=== PATIENT | female | born 1930 | race Caucasian/White ===

== ENCOUNTER 2019-03-20 12:43 | Inpatient (IN) | payer MEDICARE, BC ==
[~2019-03-20] VITALS: Ht 167.6 cm; Wt 63.6 kg
[2019-03-20 13:26] LABS: BASOPHILS # (AUTO) 0.1 X10'3 (0-0.2); BASOPHILS % (AUTO) 0.2 % (0-1); EOSINOPHILS % (AUTO) 0 % (0-6); HEMATOCRIT 35.1 % (35.0-45.0); HEMOGLOBIN 11.6 g/dl (12.0-16.0); LYMPHOCYTES # (AUTO) 0.3 X10'3 (1.1-4.8); LYMPHOCYTES % (AUTO) 1.4 % (21-51); MEAN CORPUSCULAR HEMOGLOBIN 31.1 PG (27.0-31.0); MEAN CORPUSCULAR VOLUME 94.4 FL (78-98); MEAN PLATELET VOLUME 8.3 FL (7.4-10.4); MONOCYTES # (AUTO) 0.6 X10'3 (0-0.9); MONOCYTES % (AUTO) 2.6 % (2-12); NEUTROPHILS # (AUTO) 22.5 X10'3 (1.8-7.7); NEUTROPHILS % (AUTO) 95.8 % (42-75); PLATELET COUNT 230 X10'3 (140-440); RED BLOOD COUNT 3.72 X10'6 (4.20-5.60); RED CELL DISTRIBUTION WIDTH 13.8 % (11.5-14.5); WHITE BLOOD COUNT 23.5 X10'3 (4.5-11.0)
[2019-03-20 13:44] LABS: ALANINE AMINOTRANSFERASE 28 U/L (12-78); ALBUMIN 3.4 G/DL (3.4-5.0); ALKALINE PHOSPHATASE 108 IU/L (46-116); ANION GAP 12 (8-16); ASPARTATE AMINO TRANSFERASE 33 U/L (10-37); BILIRUBIN,TOTAL 0.8 MG/DL (0.1-1.0); BLOOD UREA NITROGEN 39 MG/DL (7-18); BUN/CREATININE RATIO 19.8 (6.6-38.0); CALCIUM 8.8 MG/DL (8.5-10.1); CHLORIDE 105 MMOL/L (99-107); CREATININE 1.97 MG/DL (0.40-0.90); GLUCOSE 144 MG/DL (70-104); POTASSIUM 4.6 MMOL/L (3.5-5.1); SODIUM 140 MMOL/L (135-145); TOTAL CARBON DIOXIDE 23.2 MMOL/L (24-32); TOTAL PROTEIN 6.9 G/DL (6.4-8.2); eGFR 24 ML/MIN
[2019-03-20 14:23] LABS: CLARITY,URINE SLIGHTLY CLOUDY (Clear); COLOR,URINE YELLOW (Yellow); GLUCOSE, URINE NEGATIVE (Neg); KETONES,URINE NEGATIVE (Neg); LEUKOCYTE ESTERASE ,URINE MODERATE (Neg); NITRITES, URINE NEGATIVE (Neg); OCCULT BLOOD,URINE NEGATIVE (Neg); PROTEIN,URINE NEGATIVE (Neg); UROBILINOGEN,URINE 0.2 E.U/dL (0.2-1.0)
[2019-03-20 14:29] LABS: UA COLLECTION TYPE STRAIGHT CATH
[2019-03-20 14:30] LABS: BACTERIA,URINE 4+ /HPF (Neg); RBC,URINE NONE SEEN /HPF (0-2); SQUAMOUS EPITHELIAL CELL,UR FEW /LPF (FEW); TRANSITIONAL EPI CELLS,URINE FEW /HPF; WBC,URINE 50-100 /HPF (0-4)
[2019-03-20 14:31] LABS: WBC CLUMPS,URINE FEW /HPF (NEGATIVE)
[2019-03-20] MEDS ORDERED: CefTRIAXone 2gm/D5W 50ml 50 ML IV ONE ×2 (14:40→14:45)
[2019-03-20] MEDS ORDERED: CefTRIAXone/D5W-Rocephin 1gm 50 ML IV ONE (14:40)
[2019-03-20] MEDS ORDERED: ondansetron/PF 4mg/2ml inj IV PRN (15:25)
[2019-03-20] MEDS ORDERED: acetaminophen 325mg tablet PO PRN ×2 (15:25)
[2019-03-20] MEDS ORDERED: magnesium 2GM in 50ml NS 50 ML IV PRN (15:25)
[2019-03-20] MEDS ORDERED: potassium Cl 20 mEq SR tablet PO PRN ×2 (15:25)
[2019-03-20] MEDS ORDERED: potassium CL 10mEq/100ml bag 100 ML IV PRN ×2 (15:25)
[2019-03-20] MEDS ORDERED: mag hydrox/Alum hydrox/simeth 30ml oral suspension PO PRN (15:25)
[2019-03-20] MEDS ORDERED: magnesium 4gm in 100ml NS 100 ML IV PRN (15:25)
[2019-03-20] MEDS ORDERED: magnesium Cl slow-release 64mg tablet PO PRN (15:25)
[2019-03-20] MEDS ORDERED: FERR325T32 PO (15:49)
[2019-03-20] MEDS ORDERED: ASPI81TA52 PO (15:49)
[2019-03-20] MEDS ORDERED: LISI-604 PO (15:50)
[2019-03-20] MEDS ORDERED: LEVO50TA8 PO (15:50)
[2019-03-20] MEDS ORDERED: LOSA1TAB39 PO (15:51)
[2019-03-20] MEDS ORDERED: MEMA10TA PO (15:52)
[2019-03-20] MEDS ORDERED: QUET-1 PO (15:52)
[2019-03-20] MEDS ORDERED: DOCU-148 PO (15:53)
[2019-03-20] MEDS ORDERED: QUET25TA PO (15:54)
[2019-03-20] MEDS ORDERED: CHOL100046 PO (15:55)
[2019-03-20] MEDS ORDERED: SERT50TA PO (15:56)
[2019-03-20] MEDS ORDERED: ALPR0.257 PO (15:57)
[2019-03-20] MEDS: normal saline 1000ml 1,000 ML IV SCH ×2 (15:57→21:45)
[2019-03-20 15:58] LABS: PHOSPHORUS 3.2 MG/DL (2.3-4.5)
[2019-03-20] MEDS ORDERED: TRAM50TA2 PO (15:58)
[2019-03-20] MEDS ORDERED: normal saline 1000ml 1,000 ML IVB ONE (16:38)
[2019-03-20] MEDS ORDERED: ALPRAZolam 0.25mg tablet PO SCH (16:50)
[2019-03-20] MEDS: memantine 5mg tablet PO SCH (20:00)
[2019-03-20] MEDS: docusate sod 100mg capsule PO SCH (20:00)
--- NOTE | 2019-03-20 20:30 | NUR ---
Patient in room [facility] 359. I have received report from THAIS Ibarra from ER, and had the opportunity to ask questions and assume patient care.
--- NOTE | 2019-03-20 20:45 | NUR ---
Pt brought up from er via gurney, pt transferred self from bed to bed. very confused, c/o pain in left calf. left calf reddened, pt refuses to have anyone touch or assess her, swings arms at nurses, and states not to touch her. bed alarm on, railsx3 up. Addendum: 03/20/19 at 2050 by Esdras Brown RN Amended: Links added.
--- NOTE | 2019-03-20 20:50 | NUR ---
Patient refusing vital signs. Will not allow assessment. Slapped the nursing aid several times. Went on about pain in the leg. Right calf reddened and warm to the touch. Pain travels from calf to upper thigh. Also c/o pain on left palencia which is also warm and reddened, skin taught and shiny. Patient has pinpoint reddened/elevated/scabbed areas on bilateral feet and on left buttock/hip.
[2019-03-20] MEDS: traMADol 50MG tablet PO PRN (21:06)
[2019-03-20] MEDS: quetiapine 100mg tablet PO SCH (21:06)
[2019-03-20] MEDS: LORazepam 2 mg/ml vial IV PRN (21:07)
[2019-03-20 22:00] VITALS: BP 99/35
--- NOTE | 2019-03-20 22:11 | NUR ---
Patient now resting comfortably. Obtained vital signs. Placed on alarm bed.
[2019-03-20] MEDS ORDERED: LISI-600 PO (23:17)
[2019-03-21 01:39] VITALS: BP 91/40
[2019-03-21] MEDS ORDERED: normal saline 1000ml 1,000 ML IVB ONE (01:51)
--- NOTE | 2019-03-21 01:54 | NUR ---
Pt MAP 57, BP 91/40. Lactic on admit 2.1, repeat 2.8. MD notified. Ordered 1L bolus.
[2019-03-21 03:07] VITALS: BP 120/60
[2019-03-21] MEDS: traMADol 50MG tablet PO PRN (03:56)
--- NOTE | 2019-03-21 04:51 | NUR ---
Lab unable to draw; two attempts. Retimed to 0730.
--- NOTE | 2019-03-21 06:30 | NUR ---
Problems reprioritized. Patient report given, questions answered & plan of care reviewed with THAIS Soto.
[2019-03-21 08:00] VITALS: BP 101/48
[2019-03-21] MEDS ORDERED: HYDROchlorothiazide 25mg tablet PO SCH (08:00)
[2019-03-21] MEDS: K and/or MAG REPLACEMENT MC SCH (08:00)
[2019-03-21] MEDS: docusate sod 100mg capsule PO SCH ×2 (08:00→22:24)
[2019-03-21] MEDS ORDERED: losartan 50mg tablet PO SCH (08:00)
[2019-03-21] MEDS ORDERED: enoxaparin 40mg/0.4ml syringe SUBCUT SCH (08:00)
[2019-03-21] MEDS ORDERED: normal saline 500ml IV soln 500 ML IV ONE (08:50)
[2019-03-21] MEDS: normal saline 1000ml 1,000 ML IV SCH ×3 (09:00→22:44)
[2019-03-21 09:02] LABS: BASOPHILS % (AUTO) 0.2 % (0-1); EOSINOPHILS % (AUTO) 0.1 % (0-6); HEMATOCRIT 30.7 % (35.0-45.0); HEMOGLOBIN 10.1 g/dl (12.0-16.0); LYMPHOCYTES # (AUTO) 0.5 X10'3 (1.1-4.8); LYMPHOCYTES % (AUTO) 2.8 % (21-51); MEAN CORPUSCULAR HEMOGLOBIN 30.8 PG (27.0-31.0); MEAN CORPUSCULAR HGB CONC 32.9 g/dL (33.0-36.5); MEAN CORPUSCULAR VOLUME 93.4 FL (78-98); MEAN PLATELET VOLUME 9.4 FL (7.4-10.4); MONOCYTES # (AUTO) 0.6 X10'3 (0-0.9); MONOCYTES % (AUTO) 3.5 % (2-12); NEUTROPHILS # (AUTO) 17.2 X10'3 (1.8-7.7); NEUTROPHILS % (AUTO) 93.4 % (42-75); PLATELET COUNT 179 X10'3 (140-440); RED BLOOD COUNT 3.29 X10'6 (4.20-5.60); RED CELL DISTRIBUTION WIDTH 13.9 % (11.5-14.5); WHITE BLOOD COUNT 18.4 X10'3 (4.5-11.0)
[2019-03-21] MEDS: memantine 5mg tablet PO SCH ×2 (09:04→22:24)
[2019-03-21] MEDS: sertraline 50mg tablet PO SCH (09:06)
[2019-03-21] MEDS: aspirin 81mg tablet.DR PO SCH (09:06)
[2019-03-21] MEDS: levoTHYROXINE 25mcg tablet PO SCH (09:07)
[2019-03-21] MEDS: CefTRIAXone/D5W-Rocephin 1gm 50 ML IV SCH (09:12)
[2019-03-21 09:19] LABS: ALANINE AMINOTRANSFERASE 24 U/L (12-78); ALBUMIN 2.6 G/DL (3.4-5.0); ALBUMIN/GLOBULIN RATIO 0.8 (1.1-1.5); ALKALINE PHOSPHATASE 82 IU/L (46-116); ANION GAP 8 (8-16); ASPARTATE AMINO TRANSFERASE 33 U/L (10-37); BILIRUBIN,TOTAL 0.4 MG/DL (0.1-1.0); BLOOD UREA NITROGEN 44 MG/DL (7-18); BUN/CREATININE RATIO 25.6 (6.6-38.0); CALCIUM 7.5 MG/DL (8.5-10.1); CHLORIDE 107 MMOL/L (99-107); CREATININE 1.72 MG/DL (0.40-0.90); GLUCOSE 115 MG/DL (70-104); MAGNESIUM 1.8 MG/DL (1.5-2.4); PHOSPHORUS 3.5 MG/DL (2.3-4.5); POTASSIUM 4.7 MMOL/L (3.5-5.1); SODIUM 140 MMOL/L (135-145); TOTAL CARBON DIOXIDE 24.6 MMOL/L (24-32); TOTAL PROTEIN 5.9 G/DL (6.4-8.2); eGFR 28 ML/MIN
[2019-03-21 12:00] VITALS: BP 91/40
[2019-03-21] MEDS ORDERED: QUEtiapine 25mg tablet PO SCH (12:00)
[2019-03-21] MEDS ORDERED: Permethrin Cream 60gm TP ONE (12:00)
[2019-03-21] MEDS: LORazepam 2 mg/ml vial IV PRN ×2 (13:51→22:43)
[2019-03-21] MEDS: ALPRAZolam 0.25mg tablet PO PRN (15:29)
--- NOTE | 2019-03-21 18:30 | NUR ---
Patient in room [facility] 359. I have received report from THAIS Soto and had the opportunity to ask questions and assume patient care. Pt is confused, has sitter at bedside, calm at this time, but is refusing to have labs drawn or care at this time. pt is moving self in bed freq. Addendum: 03/21/19 at 1920 by Esdras Brown RN Amended: Links added.
[2019-03-21] MEDS ORDERED: normal saline 500ml IV soln 500 ML IV PRN (18:55)
[2019-03-21 19:00] VITALS: BP 111/53
--- NOTE | 2019-03-21 20:15 | NUR ---
Pt refusing to take any medications at this time. confused. Addendum: 03/21/19 at 2123 by Esdras Brown RN Amended: Links added.
[2019-03-21] MEDS: quetiapine 100mg tablet PO SCH (22:24)
[2019-03-21] MEDS: lactobacillus rhamnosus 10,000 MMU CELLS/CAPSULE PO SCH (22:24)
--- NOTE | 2019-03-21 22:55 | NUR ---
Pt refused any oral care, clenches mouth, has some food in mouth, took sips of water only. dentures were removed earlier and caked with food. brushed, rinsed and soaking in denture cooker cleaner. will attempt oral care again later. mic jackson, rosangela clean. Addendum: 03/21/19 at 2339 by Esdras Brown RN Amended: Links added.
--- NOTE | 2019-03-21 22:55 | NUR ---
more calm after ativan, laquita inserted, pt does kick and grab nurses hands, tries to hit, but is less combative. Very confused, states she is not in hospital, yelling"help" "you're stupid", mumbling, "what is this place,?" Addendum: 03/21/19 at 5682 by Esdras Brown RN Amended: Links added.
[2019-03-22 00:30] VITALS: BP 92/52
--- NOTE | 2019-03-22 03:30 | NUR ---
Complete bed bath, hair washed, oral care brushed lower teeth, swabbed gums and tongue, belem care, ands and feet washed. Emelyte cream has been on 14 hours, per instructions wash off now. lotion applied to skin. all linen changed. Addendum: 03/22/19 at 0412 by Esdras Brown RN Amended: Links added.
--- NOTE | 2019-03-22 06:43 | NUR ---
Problems reprioritized. Patient report given, questions answered & plan of care reviewed with THAIS Cannon. Addendum: 03/22/19 at 0644 by Esdras Brown RN Amended: Links added.
[2019-03-22 06:56] LABS: BASOPHILS % (AUTO) 0.3 % (0-1); EOSINOPHILS # (AUTO) 0.4 X10'3 (0-0.9); EOSINOPHILS % (AUTO) 2.8 % (0-6); HEMATOCRIT 28.6 % (35.0-45.0); HEMOGLOBIN 9.2 g/dl (12.0-16.0); LYMPHOCYTES # (AUTO) 0.5 X10'3 (1.1-4.8); LYMPHOCYTES % (AUTO) 3.8 % (21-51); MEAN CORPUSCULAR HEMOGLOBIN 30.7 PG (27.0-31.0); MEAN CORPUSCULAR HGB CONC 32.1 g/dL (33.0-36.5); MEAN CORPUSCULAR VOLUME 95.7 FL (78-98); MEAN PLATELET VOLUME 9.3 FL (7.4-10.4); MONOCYTES # (AUTO) 0.5 X10'3 (0-0.9); MONOCYTES % (AUTO) 3.7 % (2-12); NEUTROPHILS # (AUTO) 11.5 X10'3 (1.8-7.7); NEUTROPHILS % (AUTO) 89.4 % (42-75); PLATELET COUNT 142 X10'3 (140-440); RED BLOOD COUNT 2.99 X10'6 (4.20-5.60); RED CELL DISTRIBUTION WIDTH 13.9 % (11.5-14.5); WHITE BLOOD COUNT 12.8 X10'3 (4.5-11.0)
[2019-03-22 07:10] LABS: ALBUMIN 2.2 G/DL (3.4-5.0); ANION GAP 10 (8-16); BLOOD UREA NITROGEN 47 MG/DL (7-18); BUN/CREATININE RATIO 33.3 (6.6-38.0); CALCIUM 7.6 MG/DL (8.5-10.1); CHLORIDE 111 MMOL/L (99-107); CREATININE 1.41 MG/DL (0.40-0.90); GLUCOSE 76 MG/DL (70-104); MAGNESIUM 2.1 MG/DL (1.5-2.4); PHOSPHORUS 3.1 MG/DL (2.3-4.5); POTASSIUM 4.2 MMOL/L (3.5-5.1); SODIUM 142 MMOL/L (135-145); TOTAL CARBON DIOXIDE 21.5 MMOL/L (24-32); eGFR 35 ML/MIN
[2019-03-22 07:45] VITALS: BP 124/61
[2019-03-22] MEDS: K and/or MAG REPLACEMENT MC SCH (08:00)
[2019-03-22] MEDS: enoxaparin 30mg/0.3ml syringe SUBCUT SCH (08:00)
[2019-03-22] MEDS: sertraline 50mg tablet PO SCH (08:32)
[2019-03-22] MEDS: levoTHYROXINE 25mcg tablet PO SCH (08:32)
[2019-03-22] MEDS: aspirin 81mg tablet.DR PO SCH (08:32)
[2019-03-22] MEDS: memantine 5mg tablet PO SCH ×2 (08:32→20:25)
[2019-03-22] MEDS: lactobacillus rhamnosus 10,000 MMU CELLS/CAPSULE PO SCH ×2 (08:32→20:25)
[2019-03-22] MEDS: docusate sod 100mg capsule PO SCH ×2 (08:32→20:25)
[2019-03-22] MEDS: CefTRIAXone/D5W-Rocephin 1gm 50 ML IV SCH (08:33)
--- NOTE | 2019-03-22 09:20 | NUR ---
certified nuclear medicine technologist states pt has been off tele for measurable time. He reported prior pt had been SR w/ rare PAC. Per THAIS Cannon, pt continually pulls telemetry unit off, sitter continues to reapply. paged regarding tele order. Rtn call pending.
[2019-03-22 11:03] VITALS: BP 103/57
[2019-03-22] MEDS: QUEtiapine 25mg tablet PO SCH (12:53)
--- NOTE | 2019-03-22 14:23 | NUR ---
Report called to recovery room nurse Addendum: 03/22/19 at 1836 by Kassandra Escobedo RN Charted in wrong patient chart. Disregard note.
[2019-03-22] MEDS: LORazepam 2 mg/ml vial IV PRN (14:30)
--- NOTE | 2019-03-22 18:00 | NUR ---
Patient in room [facility] 359. I have received report from Kassandra PLASCENCIA and had the opportunity to ask questions and assume patient care.
--- NOTE | 2019-03-22 18:35 | NUR ---
Problems reprioritized. Patient report given, questions answered & plan of care reviewed with THAIS Altamirano.
[2019-03-22 20:00] VITALS: BP 121/64
[2019-03-22] MEDS: quetiapine 100mg tablet PO SCH (20:25)
[2019-03-22] MEDS: traMADol 50MG tablet PO PRN (20:25)
--- NOTE | 2019-03-23 06:44 | NUR ---
Problems reprioritized. Patient report given, questions answered & plan of care reviewed with Francesca PLASCENCIA.
[2019-03-23 07:28] LABS: BASOPHILS # (AUTO) 0.1 X10'3 (0-0.2); BASOPHILS % (AUTO) 0.5 % (0-1); EOSINOPHILS # (AUTO) 0.8 X10'3 (0-0.9); EOSINOPHILS % (AUTO) 7.5 % (0-6); HEMOGLOBIN 10.3 g/dl (12.0-16.0); LYMPHOCYTES # (AUTO) 0.9 X10'3 (1.1-4.8); LYMPHOCYTES % (AUTO) 8.2 % (21-51); MEAN CORPUSCULAR HEMOGLOBIN 31.1 PG (27.0-31.0); MEAN CORPUSCULAR HGB CONC 33.1 g/dL (33.0-36.5); MEAN CORPUSCULAR VOLUME 93.9 FL (78-98); MEAN PLATELET VOLUME 9.2 FL (7.4-10.4); MONOCYTES # (AUTO) 0.8 X10'3 (0-0.9); NEUTROPHILS # (AUTO) 8.3 X10'3 (1.8-7.7); NEUTROPHILS % (AUTO) 76.8 % (42-75); PLATELET COUNT 181 X10'3 (140-440); RED BLOOD COUNT 3.31 X10'6 (4.20-5.60); RED CELL DISTRIBUTION WIDTH 13.8 % (11.5-14.5); WHITE BLOOD COUNT 10.8 X10'3 (4.5-11.0)
[2019-03-23 07:50] LABS: ALBUMIN 2.3 G/DL (3.4-5.0); ANION GAP 10 (8-16); BLOOD UREA NITROGEN 38 MG/DL (7-18); BUN/CREATININE RATIO 30.4 (6.6-38.0); CALCIUM 8.5 MG/DL (8.5-10.1); CHLORIDE 108 MMOL/L (99-107); CREATININE 1.25 MG/DL (0.40-0.90); GLUCOSE 88 MG/DL (70-104); PHOSPHORUS 2.8 MG/DL (2.3-4.5); POTASSIUM 3.7 MMOL/L (3.5-5.1); SODIUM 141 MMOL/L (135-145); TOTAL CARBON DIOXIDE 22.9 MMOL/L (24-32); eGFR 41 ML/MIN
[2019-03-23 08:00] VITALS: BP 137/98
[2019-03-23] MEDS: K and/or MAG REPLACEMENT MC SCH (08:00)
[2019-03-23] MEDS: CefTRIAXone/D5W-Rocephin 1gm 50 ML IV SCH (09:23)
[2019-03-23] MEDS: docusate sod 100mg capsule PO SCH ×2 (09:24→20:01)
[2019-03-23] MEDS: aspirin 81mg tablet.DR PO SCH (09:24)
[2019-03-23] MEDS: lactobacillus rhamnosus 10,000 MMU CELLS/CAPSULE PO SCH ×2 (09:24→20:01)
[2019-03-23] MEDS: sertraline 50mg tablet PO SCH (09:24)
[2019-03-23] MEDS: levoTHYROXINE 25mcg tablet PO SCH (09:24)
[2019-03-23] MEDS: memantine 5mg tablet PO SCH ×2 (09:24→20:01)
[2019-03-23] MEDS: enoxaparin 30mg/0.3ml syringe SUBCUT SCH (09:25)
[2019-03-23] MEDS: traMADol 50MG tablet PO PRN ×2 (09:29→20:01)
[2019-03-23] MEDS: QUEtiapine 25mg tablet PO SCH (11:39)
[2019-03-23] MEDS: diphenhydrAMINE 25mg capsule PO PRN ×2 (11:39→18:18)
[2019-03-23 11:58] VITALS: BP 116/67
[2019-03-23] MEDS ORDERED: vancomycin/NS 1 GM ADD-VANTAGE 250 ML IV SCH (12:00)
--- NOTE | 2019-03-23 13:38 | NUR ---
RAZIA REPORTED SOME COUGHING WHILE EATING [facility] SOFT DIET. [facility] ALREADY COMPLETED. DOWNGRADED DIET TO GROUND FOOD.
--- NOTE | 2019-03-23 16:20 | NUR ---
Patient presents from [facility] from Alzheimer unit with metabolic encephalopathy, sepsis, UTI, lactic acidosis, clinically improving per MD note. Pt in scabies isolation. Patient with mechanical soft diet, appetite is fair, eating about 50% of meals. LBM 03/20 was a smear, patient is receiving routine colace BID, regular bowel movements may improve appetite. Patient is documented as confused, combative, not appropriate for bedside interview for food preferences. May benefit from ONS in view of suboptimal intake, will notify MD. Recommend: 1. continue mechanical soft diet, chop all 2. Ensure Enlive with meals 3. Weight per rx Addendum: 03/23/19 at [address] Amended: Links added.
--- NOTE | 2019-03-23 16:21 | NUR ---
Patient presents from [facility] from Alzheimer unit with metabolic encephalopathy, sepsis, UTI, lactic acidosis, clinically improving per MD note. Pt in scabies isolation. Patient with mechanical soft diet, appetite is fair, eating about 50% of meals. LBM 03/20 was a smear, patient is receiving routine colace BID, regular bowel movements may improve appetite. Patient is documented as confused, combative, not appropriate for bedside interview for food preferences. May benefit from ONS in view of suboptimal intake, will notify MD. Noted that patient also changed to grind all, may help improve intake. Recommend: 1. continue mechanical soft diet, grind all 2. Ensure Enlive with meals 3. Weight per rx Addendum: 03/23/19 at [address] Amended: Links added.
--- NOTE | 2019-03-23 16:40 | NUR ---
PAGER ID: [phone] MESSAGE: [phone] Delores Conner Pt. breath sounds wheezy. SA02 96% on 3 LPM. Noticed CXR states possible COPD. Do you want a RT eval? ABGs? pt. on 3LPM. Parameters for SAO2? Francesca [phone]
--- NOTE | 2019-03-23 17:15 | NUR ---
PAGER ID: [phone] MESSAGE: Delores Conner [id number] pt. IV no longer working. Pt. refusing to have another IV placed. May we have an order for no IV? PO antibiotics? Francesca [id number]
[2019-03-23] MEDS ORDERED: ipratropium/albuterol 3ml nebule NEB PRN (17:20)
[2019-03-23] MEDS: lactose-reduced food (Ensure Enlive) - 237ml bottle PO SCH (18:00)
[2019-03-23] MEDS: DOXYCYCLINE 100MG CAPSULE PO SCH (18:16)
[2019-03-23] MEDS: cefpodoxime proxetil 100mg tablet PO SCH (18:17)
--- NOTE | 2019-03-23 18:24 | NUR ---
PT. IN ROOM RESTING, RISE AND FALL OF CHEST, 02 AT 1 LPM, COMFORTABLE AT THIS TIME. Problems reprioritized. Patient report given, questions answered & plan of care reviewed with BRANDON PLASCENCIA.
[2019-03-23 20:00] VITALS: BP 133/75
[2019-03-23] MEDS: quetiapine 100mg tablet PO SCH (20:01)
--- NOTE | 2019-03-23 20:15 | NUR ---
Spoke with Dr. Lee about changing IV Ativan to PO. Given orders to D/C Ativan entirely instead, due to possibly increasing delirum.
[2019-03-24] MEDS: diphenhydrAMINE 25mg capsule PO PRN ×2 (03:44→23:30)
[2019-03-24 06:30] VITALS: BP 128/62
--- NOTE | 2019-03-24 06:30 | NUR ---
Patient in room [facility] 359. I have received report from THAIS Altamirano and had the opportunity to ask questions and assume patient care.
[2019-03-24 06:38] LABS: BASOPHILS # (AUTO) 0.1 X10'3 (0-0.2); BASOPHILS % (AUTO) 0.6 % (0-1); EOSINOPHILS # (AUTO) 0.9 X10'3 (0-0.9); EOSINOPHILS % (AUTO) 9.3 % (0-6); HEMATOCRIT 28.9 % (35.0-45.0); HEMOGLOBIN 9.6 g/dl (12.0-16.0); LYMPHOCYTES # (AUTO) 0.9 X10'3 (1.1-4.8); LYMPHOCYTES % (AUTO) 9.6 % (21-51); MEAN CORPUSCULAR HEMOGLOBIN 31.2 PG (27.0-31.0); MEAN CORPUSCULAR HGB CONC 33.4 g/dL (33.0-36.5); MEAN CORPUSCULAR VOLUME 93.5 FL (78-98); MEAN PLATELET VOLUME 9.2 FL (7.4-10.4); MONOCYTES # (AUTO) 0.9 X10'3 (0-0.9); MONOCYTES % (AUTO) 9.4 % (2-12); NEUTROPHILS # (AUTO) 6.5 X10'3 (1.8-7.7); NEUTROPHILS % (AUTO) 71.1 % (42-75); PLATELET COUNT 189 X10'3 (140-440); RED BLOOD COUNT 3.09 X10'6 (4.20-5.60); RED CELL DISTRIBUTION WIDTH 13.7 % (11.5-14.5); WHITE BLOOD COUNT 9.2 X10'3 (4.5-11.0)
--- NOTE | 2019-03-24 06:41 | NUR ---
Problems reprioritized. Patient report given, questions answered & plan of care reviewed with Liliana RN.
[2019-03-24 06:42] LABS: ALBUMIN 2.2 G/DL (3.4-5.0); ANION GAP 9 (8-16); BLOOD UREA NITROGEN 30 MG/DL (7-18); BUN/CREATININE RATIO 29.4 (6.6-38.0); CALCIUM 8.5 MG/DL (8.5-10.1); CHLORIDE 108 MMOL/L (99-107); CREATININE 1.02 MG/DL (0.40-0.90); GLUCOSE 91 MG/DL (70-104); MAGNESIUM 1.7 MG/DL (1.5-2.4); PHOSPHORUS 3.5 MG/DL (2.3-4.5); POTASSIUM 4.3 MMOL/L (3.5-5.1); SODIUM 140 MMOL/L (135-145); TOTAL CARBON DIOXIDE 22.7 MMOL/L (24-32); eGFR 51 ML/MIN
[2019-03-24] MEDS: K and/or MAG REPLACEMENT MC SCH (07:34)
[2019-03-24] MEDS: DOXYCYCLINE 100MG CAPSULE PO SCH ×2 (08:09→17:32)
[2019-03-24] MEDS: aspirin 81mg tablet.DR PO SCH (08:09)
[2019-03-24] MEDS: memantine 5mg tablet PO SCH ×2 (08:09→21:29)
[2019-03-24] MEDS: sertraline 50mg tablet PO SCH (08:09)
[2019-03-24] MEDS: levoTHYROXINE 25mcg tablet PO SCH (08:09)
[2019-03-24] MEDS: lactobacillus rhamnosus 10,000 MMU CELLS/CAPSULE PO SCH ×2 (08:09→21:29)
[2019-03-24] MEDS: docusate sod 100mg capsule PO SCH ×2 (08:09→21:29)
[2019-03-24] MEDS: magnesium hydroxide 30ml (MOM) UD suspension PO PRN (08:10)
[2019-03-24] MEDS: enoxaparin 30mg/0.3ml syringe SUBCUT SCH (08:10)
[2019-03-24] MEDS: cefpodoxime proxetil 100mg tablet PO SCH ×2 (08:10→17:32)
[2019-03-24] MEDS: lactose-reduced food (Ensure Enlive) - 237ml bottle PO SCH ×3 (08:10→18:28)
[2019-03-24] MEDS ORDERED: CEFD300C3 PO (08:47)
[2019-03-24] MEDS ORDERED: DOXY-224 PO (08:47)
[2019-03-24] MEDS ORDERED: LACT1CAP26 PO (08:47)
[2019-03-24 11:00] VITALS: BP 102/50
--- NOTE | 2019-03-24 12:00 | NUR ---
O2 Sat at rest on room air:_82__% If below 89%: Recovery O2 Sat at rest on __2_LPM:__92_%:___% via NC (mask/nasal cannula, etc..) No further documentation is necessary. If O2 Sat did not drop below 89% on room air,ambulate patient on room air. O2 Sat while ambulating on room air:___% Recovery O2 Sat while ambulating on ___LPM:___% No further documentation is necessary. If patient does not drop below 89% while ambulating, he/she does not qualify for home O2.
--- NOTE | 2019-03-24 12:00 | NUR ---
O2 Sat at rest on room air:_82__% If below 89%: Recovery O2 Sat at rest on _2__LPM:__92_%:___% via____NC (mask/nasal cannula, etc..) No further documentation is necessary. If O2 Sat did not drop below 89% on room air,ambulate patient on room air. O2 Sat while ambulating on room air:___% Recovery O2 Sat while ambulating on ___LPM:___% No further documentation is necessary. If patient does not drop below 89% while ambulating, he/she does not qualify for home O2.
[2019-03-24] MEDS: QUEtiapine 25mg tablet PO SCH (12:35)
--- NOTE | 2019-03-24 15:13 | NUR ---
Nutrition consult RE "low albumin": Addressed in prior RD note; see below. Patient presents from [facility] from Alzheimer unit with metabolic encephalopathy, sepsis, UTI, lactic acidosis, clinically improving per MD note. Pt in scabies isolation. Patient with mechanical soft diet, appetite is fair, eating about 50% of meals. LBM 03/20 was a smear, patient is receiving routine colace BID, regular bowel movements may improve appetite. Patient is documented as confused, combative, not appropriate for bedside interview for food preferences. May benefit from ONS in view of suboptimal intake, will notify MD. Noted that patient also changed to grind all, may help improve intake. Recommend: 1. continue mechanical soft diet, grind all 2. Ensure Enlive with meals 3. Weight per rx Addendum: 03/24/19 at [address] Amended: Links added.
--- NOTE | 2019-03-24 18:10 | NUR ---
Patient in room [facility] 359. I have received report from Liliana PLASCENCIA and had the opportunity to ask questions and assume patient care.
--- NOTE | 2019-03-24 18:15 | NUR ---
Problems reprioritized. Patient report given, questions answered & plan of care reviewed with THAIS Altamirano.
[2019-03-24 20:00] VITALS: BP 127/61
[2019-03-24] MEDS: quetiapine 100mg tablet PO SCH (21:29)
[2019-03-24] MEDS: traMADol 50MG tablet PO PRN (21:30)
--- NOTE | 2019-03-24 22:27 | NUR ---
encouraged patient to void into commode. Patient stated that she did not feel like she needed to void. Bladder scan showed 286ml. Patient was straight cath'd per Dr. Lee's orders and drained 335ml.
[2019-03-25] VITALS: BP 126/64
--- NOTE | 2019-03-25 04:58 | NUR ---
Pt unable to void. Bladder scan showed 506ml in bladder. Straight catheter was inserted per MD orders and drained 450ml out of bladder. Patient resistant.
[2019-03-25 06:18] LABS: BASOPHILS # (AUTO) 0.1 X10'3 (0-0.2); BASOPHILS % (AUTO) 0.6 % (0-1); EOSINOPHILS % (AUTO) 10.5 % (0-6); HEMATOCRIT 31.1 % (35.0-45.0); HEMOGLOBIN 10.1 g/dl (12.0-16.0); LYMPHOCYTES # (AUTO) 1.7 X10'3 (1.1-4.8); MEAN CORPUSCULAR HEMOGLOBIN 30.7 PG (27.0-31.0); MEAN CORPUSCULAR HGB CONC 32.6 g/dL (33.0-36.5); MEAN CORPUSCULAR VOLUME 94.1 FL (78-98); MEAN PLATELET VOLUME 9.2 FL (7.4-10.4); MONOCYTES % (AUTO) 10.7 % (2-12); NEUTROPHILS # (AUTO) 5.8 X10'3 (1.8-7.7); NEUTROPHILS % (AUTO) 60.2 % (42-75); PLATELET COUNT 215 X10'3 (140-440); RED CELL DISTRIBUTION WIDTH 13.7 % (11.5-14.5); WHITE BLOOD COUNT 9.6 X10'3 (4.5-11.0)
--- NOTE | 2019-03-25 06:20 | NUR ---
Patient in room [facility] 359. I have received report from THAIS Altamirano and had the opportunity to ask questions and assume patient care.
[2019-03-25 06:30] VITALS: BP 139/75
--- NOTE | 2019-03-25 06:32 | NUR ---
Problems reprioritized. Patient report given, questions answered & plan of care reviewed with Liliana RN.
[2019-03-25 07:01] LABS: ALBUMIN 2.5 G/DL (3.4-5.0); ANION GAP 11 (8-16); BLOOD UREA NITROGEN 27 MG/DL (7-18); BUN/CREATININE RATIO 23.3 (6.6-38.0); CALCIUM 9.1 MG/DL (8.5-10.1); CHLORIDE 105 MMOL/L (99-107); CREATININE 1.16 MG/DL (0.40-0.90); GLUCOSE 93 MG/DL (70-104); MAGNESIUM 1.9 MG/DL (1.5-2.4); PHOSPHORUS 3.2 MG/DL (2.3-4.5); POTASSIUM 4.5 MMOL/L (3.5-5.1); SODIUM 141 MMOL/L (135-145); TOTAL CARBON DIOXIDE 25.5 MMOL/L (24-32); eGFR 44 ML/MIN
[2019-03-25] MEDS: K and/or MAG REPLACEMENT MC SCH (08:00)
[2019-03-25] MEDS: lactose-reduced food (Ensure Enlive) - 237ml bottle PO SCH ×3 (08:30→18:06)
[2019-03-25] MEDS: aspirin 81mg tablet.DR PO SCH (09:57)
[2019-03-25] MEDS: levoTHYROXINE 25mcg tablet PO SCH (09:57)
[2019-03-25] MEDS: DOXYCYCLINE 100MG CAPSULE PO SCH ×2 (09:57→17:56)
[2019-03-25] MEDS: sertraline 50mg tablet PO SCH (09:57)
[2019-03-25] MEDS: cefpodoxime proxetil 100mg tablet PO SCH ×2 (09:57→17:56)
[2019-03-25] MEDS: docusate sod 100mg capsule PO SCH ×2 (09:57→19:32)
[2019-03-25] MEDS: lactobacillus rhamnosus 10,000 MMU CELLS/CAPSULE PO SCH ×2 (09:57→19:32)
[2019-03-25] MEDS: memantine 5mg tablet PO SCH ×2 (09:57→19:32)
[2019-03-25] MEDS: enoxaparin 40mg/0.4ml syringe SUBCUT SCH (09:58)
--- NOTE | 2019-03-25 10:30 | NUR ---
Bladder ptdf=441yb. Informed Dr Lee & lucio states to continue Q4-6h bladder scan, place FC if >250 (As already RX'd yesterday).
[2019-03-25 11:30] VITALS: BP 156/76
[2019-03-25] MEDS: QUEtiapine 25mg tablet PO SCH (11:36)
[2019-03-25] MEDS: tamsulosin 0.4mg capsule PO SCH (11:36)
--- NOTE | 2019-03-25 16:30 | NUR ---
Bladder jold=495vh. 1700 FC placed w/350ml out.
--- NOTE | 2019-03-25 18:20 | NUR ---
Problems reprioritized. Patient report given, questions answered & plan of care reviewed with THAIS Brooke.
[2019-03-25 19:00] VITALS: BP 147/71
[2019-03-25] MEDS: quetiapine 100mg tablet PO SCH (19:32)
[2019-03-25] MEDS: diphenhydrAMINE 25mg capsule PO PRN (20:45)
--- NOTE | 2019-03-25 23:47 | NUR ---
Patient in room [facility] 359. I have received report from THAIS Ford and had the opportunity to ask questions and assume patient care. Addendum: 03/25/19 at 2348 by Mendy Sawyer RN Amended: Links added.
[2019-03-26 00:30] VITALS: BP 142/70
--- NOTE | 2019-03-26 06:05 | NUR ---
Patient in room [facility] 359. I have received report from THAIS Brooke and had the opportunity to ask questions and assume patient care.
--- NOTE | 2019-03-26 06:09 | NUR ---
Problems reprioritized. Patient report given, questions answered & plan of care reviewed with THAIS Ford. Addendum: 03/26/19 at 0610 by Mendy Sawyer RN Amended: Links added.
--- NOTE | 2019-03-26 06:33 | NUR ---
Problems reprioritized. Patient report given, questions answered & plan of care reviewed with THAIS Ford. Addendum: 03/26/19 at 0634 by Mendy Sawyer RN Amended: Links added.
[2019-03-26] MEDS: K and/or MAG REPLACEMENT MC SCH (07:15)
[2019-03-26 08:00] VITALS: BP 126/54
[2019-03-26] MEDS: DOXYCYCLINE 100MG CAPSULE PO SCH (08:05)
[2019-03-26] MEDS: tamsulosin 0.4mg capsule PO SCH (08:05)
[2019-03-26] MEDS: sertraline 50mg tablet PO SCH (08:05)
[2019-03-26] MEDS: docusate sod 100mg capsule PO SCH (08:05)
[2019-03-26] MEDS: enoxaparin 40mg/0.4ml syringe SUBCUT SCH (08:06)
[2019-03-26] MEDS: aspirin 81mg tablet.DR PO SCH (08:06)
[2019-03-26] MEDS: memantine 5mg tablet PO SCH (08:06)
[2019-03-26] MEDS: lactobacillus rhamnosus 10,000 MMU CELLS/CAPSULE PO SCH (08:06)
[2019-03-26] MEDS: lactose-reduced food (Ensure Enlive) - 237ml bottle PO SCH ×2 (08:07→13:15)
[2019-03-26] MEDS: cefpodoxime proxetil 100mg tablet PO SCH (08:11)
[2019-03-26] MEDS: levoTHYROXINE 25mcg tablet PO SCH (08:11)
[2019-03-26] MEDS: magnesium hydroxide 30ml (MOM) UD suspension PO PRN (10:09)
[2019-03-26] MEDS ORDERED: DOXY-224 PO (10:30)
[2019-03-26] MEDS ORDERED: CEFD300C3 PO (10:30)
--- NOTE | 2019-03-26 10:39 | NUR ---
Patient up the BSC with 1 person assist. Tolerated well. Complete bedbath given. No issues with patient, she is happy and pleasant.
[2019-03-26 11:00] VITALS: BP 156/71
[2019-03-26] MEDS ORDERED: VANCOMYCIN LEVEL IV ONE (11:30)
[2019-03-26] MEDS: QUEtiapine 25mg tablet PO SCH (11:34)
[2019-03-26] MEDS: ALPRAZolam 0.25mg tablet PO PRN (11:51)
--- NOTE | 2019-03-26 11:56 | NUR ---
Patient having a crying spell with some anxiety. Patient states that she is sad, wants to go home.
--- NOTE | 2019-03-26 12:40 | NUR ---
Report given to [facility] staff Rachelle. Patient ready for discharge. OOB currently eating lunch. Tolerating well.
--- NOTE | 2019-03-26 12:55 | NUR ---
Patient back to bed, tolerated well.
--- NOTE | 2019-03-26 14:15 | NUR ---
Patient discharged with FC intact, education completed and in patients discharge packet. Patients medications to be filled in discharge packet along with next doses and time for routine medications to take. Patient unable to sign discharge packet and medi form. Patient Stable for discharge.
== END 2019-03-26 14:03 | disposition home health service (06) | DRG 871 ==
LOC: ER 12:43 → SUR 3N 20:44 → CMPBEDREQ 03-21 03:56
PROVIDERS: ADMIT Family Medicine; ATTEND Hospitalist
DX: A41.51 Sepsis due to Escherichia coli [E. coli] (principal); G93.41 Metabolic encephalopathy; J18.9 Pneumonia, unspecified organism; N17.0 Acute kidney failure with tubular necrosis; E87.2 Acidosis; N39.0 Urinary tract infection, site not specified; L03.116 Cellulitis of left lower limb; B86 Scabies; B96.20 Unspecified Escherichia coli [E. coli] as the cause of diseases classified elsewhere; B96.89 Other specified bacterial agents as the cause of diseases classified elsewhere; E03.9 Hypothyroidism, unspecified; R33.9 Retention of urine, unspecified; D64.9 Anemia, unspecified; G30.9 Alzheimer's disease, unspecified; F02.80 Dementia in other diseases classified elsewhere, unspecified severity, without behavioral disturbance, psychotic disturbance, mood disturbance, and anxiety; I12.9 Hypertensive chronic kidney disease with stage 1 through stage 4 chronic kidney disease, or unspecified chronic kidney disease; N18.9 Chronic kidney disease, unspecified; Z66 Do not resuscitate; Z79.82 Long term (current) use of aspirin; Z79.899 Other long term (current) drug therapy; Z79.890 Hormone replacement therapy; Z91.018 Allergy to other foods
CPT/HCPCS: 36415; 71045; 80048; 80053; 81001; 83605; 83735; 83880; 84100; 84145; 84443; 85025; 87040; 87077; 87081; 87088; 87186; 92508; 92616; 94760; 96365; 96366; 97110; 97116; 97161; 97530; 99285; G0378; J0696; J1650; J2060; J3370; J7030; J7040; Q0163